=== PATIENT | female | born 1980 | race Caucasian/White ===

== ENCOUNTER 2025-06-09 23:13 | Emergency (ER) | payer MEDICAID ==
[~2025-06-09] VITALS: Ht 160 cm; Wt 57.9 kg
[~2025-06-09 23:13] MED LIST: PREN-129 OR
--- NOTE | 2025-06-10 00:07 | ED.PDOC ---
Back pain HPI HPI Comments HPI: Poor Historian. 45-year-old female presents to emergency department for evaluation of a right shoulder injury that happened a week ago. Patient states she was asleep on a chair and had a night bear and jumped and fell on her right shoulder. She has been having constant pain since then. Patient has decreased range of motion in the affected extremity due to pain. Denies any other injuries. Denies any head injury. Past Medical History: Bradycardic, anemia, gastric ulcer Past Surgical History: Gastric bypass, hysterectomy, , cholecystectomy. REVIEW OF SYSTEMS: CONSTITUTIONAL: Denies acute: fever, diaphoresis, chills, generalized weakness. HEAD: Denies acute: headache, photophobia Eyes: Denies acute: Double vision, vision loss, eye pain, eye discharge. EARS: Denies acute: tinnitus, hearing loss, ear discharge, ear pain, THROAT: Denies acute: sore throat, swelling, difficulty swallowing , pain with swallowing, change in voice. NECK: Denies acute: neck pain, neck swelling, stiff neck. HEART: Denies acute : chest pain, palpitations, LUNGS: Denies acute: SOB, wheezing, cough, hemoptysis ABDOMEN: Denies acute: abdominal pain, Nausea, Vomiting, diarrhea, melena , hematemesis, hematochezia SKIN: Denies acute: rash, redness, lesions, itchiness. EXTREMITIES: Denies acute: calf pain, weakness, Denies acute: Low back pain. Neuro: Denies acute: focal neurological deficit, motor or sensory focal neurological deficit, tremors, seizure like activity, confusion, dizziness, change in mental status, loss of bowel or bladder function, cauda equina like symptoms. : Denies acute: dysuria, hematuria, flank pain, increase in urinary frequency. PSYCH: Denies acute: hallucination, suicidal ideation, homicidal ideation. FEMALE: Denies acute: abnormal vaginal bleeding, foul odor, unusual discharge. PHYSICAL EXAM: General: ---moderate-----acute distress, awake and alert. Head: normocephalic, atraumatic. No raccoon's eyes, no rowland sign. Neck: supple, trachea is midline, no swelling. Cervical spine: Palpation of the posterior midline of the cervical spine reveals no focal swelling, erythema, focal tenderness to palpation. Patient has normal range of motion. Throat: Normal phonation. Eyes:, no erythema, no purulent discharge, no proptosis, no icterus. Heart: regular rate, regular rhythm, no significant murmur appreciated. Lungs: no apparent respiratory distress, Able to speak in full sentences. No wheezing, no rhonchi, no crackles. No stridors Clear to auscultation bilaterally. Abdomen: non tender to palpation, non distended, soft, no guarding, no rebound, + bowel sounds. Neuro: Awake, Alert, oriented to name, self, situation, follows commands GCS=15. Speech is normal. Skin: no petechia, no purpura, no cyanosis, non-pale, not jaundice. Lower extremities: --no - Pitting edema no deformity, no focal swelling, no calf TTP. Makes eye contact. moves all four extremities. However decreased range of motion of right upper extremity due to right shoulder pain. No apparent hematoma or swelling or deformity. Patient is neurovascularly intact in the affected extremity. Radial pulses palpable. Patient is able to oppose all her digits in the affected extremity That shoulder is tender to palpation. Face: no apparent facial droop. Ambulating in the ED independently. No nystagmus. No nuchal rigidity, Kernig's sign, Brudzinski's sign, no meningeal signs. ED COURSE: DISCLAIMER: This medical document was created using an electronic medical record system with voice recognition software and computerized dictation system. Although this document has been carefully reviewed, there might still be some phonetic and typographical errors. Occasional wrong-word or "sound-alike" substitutions may have occurred due to the inherent limitations of voice recognition software. These areas are purely typographical due to imperfections of the software programs and do not reflect any compromise in the patient's medical care. Please read the chart carefully and recognize, using context, where these substitutions have occurred. Chief Complaint: Upper Extremity Time Seen by MD: 23:44 Reviewed Notes: Allergies Allergies: Coded Allergies: NSAIDs (Verified Allergy, Unknown, 06/09/25) Home Meds Reported Medications Vit W/ Ferrous Fumara () Tab, 1 OR, TAB 10/12/14 Information Source: Patient Mode of Arrival: Ambulatory X-Ray, Labs, Meds, VS Vital Signs Date Time Temp Pulse Resp B/P (MAP) Pulse Ox O2 Delivery O2 Flow Rate FiO2 06/10/25 00:17 89 18 100 Room Air 06/10/25 00:17 98.0 89 18 151/88 (109) 98.0 06/09/25 23:15 97.8 71 18 161/102 100 97.8 Current Medications Medications (Trade) Dose Ordered Sig/David Route Start Time Stop Time Status Last Admin Acetaminophen/ Hydrocodone Bitart ([place] 5/325MG Tab) 1 tab ONCE ONCE PO 06/10/25 00:15 06/10/25 00:16 DC 06/10/25 00:26 Acetaminophen/ Hydrocodone Bitart ([place] 5/325MG Tab) 1 tab ONCE ONCE PO 06/10/25 01:30 06/10/25 01:31 DC 06/10/25 01:33 Departure 1 Departure Time of Disposition: 00:06 Impression: Primary Impression: Right shoulder injury Disposition: HOME / SELF CARE / HOMELESS Condition: Stable Additional Instructions: Additional instructions: Please read all instructions provided in this packet carefully. You MUST follow-up with your primary care/family doctor in 1 to 2 days. If you are unable to see your primary care/family doctor, please return to our emergency room for re-assessment and re-evaluation in 1 to 2 days. Return to the emergency room here in our facility or to the nearest ER [facility] if your symptoms change or worsen. CONSULTATIONS: you MUST Follow-up for consultation as soon as possible with: -orthopedic doctor in 1-2 days. Please call for appointment. You MUST call the consultants office yourself to make an appointment. You may need to arrange that through your insurance and/or your primary/family doctor. If you are unable to see the ergonomics consultant in 1 to 2 days, you must return to our emergency room (or any other ER of your choice) for re-assessment and re- evaluation. Adequate fluid hydration. Although you have been discharged from the Emergency Department, this does not mean that you have a "clean bill of health". No definitive diagnosis for your symptoms has been made today. It is possible that you are in the process of developing a serious illness. This is why you must return to the ED without fail if any new or worsening symptoms develop. Continue wearing the sling for support. Below is a copy of your radiological report for follow up: [facility] [id number] [facility] [id number] Ph: [phone] DIAGNOSTIC IMAGING Diagnostic Imaging Report : [id number] Signed PATIENT: KRISTYN SMILEY ACCT: [id number] UNIT: [id number] : 1980 LOC: ER ROOM / BED: / AGE / SEX: 45 / F ADM STATUS: REG ER SERVICE [id number] ORDERING PHYSICIAN: JOE KAUFMAN DO PROCEDURE(s): RSHD2 - R SHOULDER 2+ VIEW XRAY REASON: fall pain injury ORDER NUMBER(s): [id number], ACCESSION NUMBER(s): [id number] EXAM: XY R SHOULDER 2+ VIEW XRAY HISTORY: Fall pain injury. COMPARISON: None available. TECHNIQUE: Two views of the right shoulder were performed. FINDINGS: No acute fracture or dislocation are identified about the right shoulder. No significant degenerative changes or loss of subacromial space. Osseous structures are normally mineralized. IMPRESSION: No acute fracture or dislocation. ATED BY: RONI MIN MD DICTATED DATE/TIME: 06/10/25199 SIGNED BY: RONI MIN MD SIGNED DATE/TIME: 06/10/25199 CC: Discharged With: Self JOE KAUFMAN DO Jun 10, 2025 00:07
[2025-06-10 00:17] VITALS: BP 151/88; PULSE 89; RESP 18; TEMP 98; O2SAT 100
[2025-06-10] MEDS: HYDROcodone-ACET 5/325MG TAB PO ONE ×2 (00:26→01:33)
--- NOTE | 2025-06-10 02:03 | DVH ---
EXAM: XY R SHOULDER 2+ VIEW XRAY HISTORY: Fall pain injury. COMPARISON: None available. TECHNIQUE: Two views of the right shoulder were performed. FINDINGS: No acute fracture or dislocation are identified about the right shoulder. No significant degenerative changes or loss of subacromial space. Osseous structures are normally mineralized. IMPRESSION: No acute fracture or dislocation.
== END 2025-06-10 02:12 | disposition home or self-care (01) ==
LOC: ER 23:13
DX: S49.91XA Unspecified injury of right shoulder and upper arm, initial encounter (principal); Z87.11 Personal history of peptic ulcer disease; Z88.6 Allergy status to analgesic agent; Z90.49 Acquired absence of other specified parts of digestive tract; Z90.710 Acquired absence of both cervix and uterus; Z98.84 Bariatric surgery status; W22.8XXA Striking against or struck by other objects, initial encounter; Y93.89 Activity, other specified; Y92.89 Other specified places as the place of occurrence of the external cause; Y99.8 Other external cause status
CPT/HCPCS: 73030